=== PATIENT | female | born 1975 | race American Indian/Alaskan Native ===

== ENCOUNTER 2017-06-11 08:08 | Outpatient (CLI) | payer OTHER ==
--- NOTE | 2017-06-11 10:11 | XRay Report ---
XRAY LEFT SHOULDER THREE VIEWS: 06/11/17 08:08:00 CLINICAL: Pain FINDINGS: No fracture or dislocation. Normal glenohumeral joint. Normal AC joint. The soft tissues are normal. IMPRESSION: Normal study.
== END 2017-06-11 08:09 | disposition home or self-care (01) ==
LOC: SPVIMAG 08:08
PROVIDERS: ATTEND Orthopaedic Surgery
DX: M25.512 Pain in left shoulder (principal)